=== PATIENT | female | born 1945 | race Caucasian/White ===

== ENCOUNTER 2023-04-30 10:11 | Outpatient (CLI) | payer MEDICARE, SELFPAY ==
--- NOTE | 2023-04-30 11:00 | NEURO_ITS ---
Impression: # Complains of numbness of feet. # Sensory neuropathy. # Normal needle/EMG exam. Nerve Conduction Studies Anti Sensory Summary Table Stim Site NR Peak (ms) P-T Amp (?V) Site1 Site2 Delta-P (ms) Dist (cm) Dean (m/s) Left Sup Fibular Anti Sensory (Ant Lat Mall) NO RESPONSE 14 cm NR 14 cm Ant Lat Mall 16.0 Right Sup Fibular Anti Sensory (Ant Lat Mall) NO RESPONSE 14 cm NR 14 cm Ant Lat Mall 16.0 Left Sural Anti Sensory (Lat Mall) NO RESPONSE Calf NR Calf Lat Mall 16.0 Right Sural Anti Sensory (Lat Mall) NO RESPONSE Calf NR Calf Lat Mall 16.0 Motor Summary Table Stim Site NR Onset (ms) O-P Amp (mV) Site1 Site2 Delta-0 (ms) Dist (cm) Dean (m/s) Left Peroneal Motor (Vastus Med) Ankle 4.3 2.2 Popit Ankle 8.4 39.0 46 Popit 12.7 1.7 Right Peroneal Motor (Vastus Med) Ankle 4.4 1.0 Popit Ankle 9.0 40.0 44 Popit 13.4 0.9 Left Tibial Motor (Abd Shrestha Brev) Ankle 4.1 1.1 Knee Ankle 9.4 42.0 45 Knee 13.5 0.9 Right Tibial Motor (Abd Shrestha Brev) Ankle 4.3 2.2 Knee Ankle 9.8 45.0 46 Knee 14.1 1.9 F Wave Studies NR F-Lat (ms) L-R F-Lat (ms) Left Peroneal (Mrkrs) (EDB) 57.15 1.66 Right Peroneal (Mrkrs) (EDB) 58.81 1.66 Left Tibial (Mrkrs) (Abd Hallucis) 57.22 0.94 Right Tibial (Mrkrs) (Abd Hallucis) 58.15 0.94 EMG Side Muscle Nerve Root Ins Act Fibs Amp Dur Recrt Comment Right AntTibialis Dp Br Fibular L4-5 Nml Nml Nml Nml Nml Right Gastroc Tibial S1-2 Nml Nml Nml Nml Nml Right Fibularis Long Sup Br Fibular L5-S1 Nml Nml Nml Nml Nml Right Flex Dig Long Tibial L5-S2 Nml Nml Nml Nml Nml Right Ext Dig Brev Dp Br Fibular L5, S1 Nml Nml Nml Nml Nml Left AntTibialis Dp Br Fibular L4-5 Nml Nml Nml Nml Nml Left Gastroc Tibial S1-2 Nml Nml Nml Nml Nml Left Fibularis Long Sup Br Fibular L5-S1 Nml Nml Nml Nml Nml Left Flex Dig Long Tibial L5-S2 Nml Nml Nml Nml Nml Left Ext Dig Brev Dp Br Fibular L5, S1 Nml Nml Nml Nml Nml MTDD
== END 2023-04-30 10:12 | disposition home or self-care (01) ==
LOC: ANHNEURO 10:13
PROVIDERS: PCP Internal Medicine; Visit Provider Podiatrist Foot & Ankle Surgery
DX: G62.9 Polyneuropathy, unspecified (principal); E11.40 Type 2 diabetes mellitus with diabetic neuropathy, unspecified
CPT/HCPCS: 95886; 95910

== ENCOUNTER 2023-07-01 01:21 | Day surgery (SDC) | payer MEDICARE, SELFPAY ==
[2023-06-21 12:19] VITALS: BMI 26.6
--- NOTE | 2023-06-28 15:58 | PM.HPGS ---
History of Present Illness History of Present Illness Consent: Risks, benefits, and alternatives have been discussed and questions answered. Patient agrees to proceed with procedure. 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 Was able to be dilated only up to 15 mm. She returns now for further treatment. Review of Systems Review of Systems: All systems reviewed & are unremarkable except as noted in HPI and below PMFSH Past Medical History Medical History Diabetes HTN (hypertension) Hyperlipidemia Osteoarthritis Overweight (BMI 25.0-29.9) Social History Social History Substance use type: does not use Living arrangements: with family Spiritual care concerns: No Meds Home Medications and Allergies Home Medications Medication Instructions Recorded Confirmed Type atorvastatin 40 mg tablet 40 mg PO DAILY 05/01/23 06/21/23 History ezetimibe 10 mg tablet 10 mg PO DAILY 05/01/23 06/21/23 History metformin 500 mg tablet,extended 500 mg PO DAILY 05/01/23 06/21/23 History release 24 hr metoprolol tartrate 100 mg tablet 100 mg PO DAILY 05/01/23 06/21/23 History zolpidem 10 mg tablet 10 mg PO HS 05/01/23 06/21/23 History omeprazole 40 mg capsule,delayed 40 mg PO DAILY #30 caps 05/09/23 06/21/23 Rx release Allergies Allergy/AdvReac Type Severity Reaction Status Date / Time meperidine [From Demerol] Allergy Hallucinati Verified 07/01/23 11:10 ng Sulfa (Sulfonamide Allergy Hives Verified 07/01/23 11:10 Antibiotics) Exam Const: General: alert Orientation/consciousness: patient oriented x3 Resp: Auscultation: clear to auscultation bilaterally Cardio: Rhythm: regular rhythm GI: GI Palp: Yes Soft to palpation and No Tenderness to palpation present (GI) Neuro: General: patient oriented x3 Assessment and Plan Assessment and plan (1) Dysphagia: Code(s): R13.10 - Dysphagia, unspecified Status: Acute Assessment and Plan: EGD with possible biopsy or dilatation or cautery.
[2023-07-01 11:12] VITALS: BP 128/65; PULSE 65; RESP 18; TEMP 36.5; O2SAT 96
[2023-07-01] MEDS: LACTATED RINGERS 1,000 ML 150 ML IV CONT (11:21)
[2023-07-01 11:23] LABS: Glucose Point of Care 106 mg/dl (65-105)
--- NOTE | 2023-07-01 11:48 | WPDANESEPPF ---
Anes - Initial Pre Proc Eval Procedure: Operation Date: 07/01/23 12:30 Proposed Procedures p Esophagogastroduodenoscopy - Arpan Queen MD Date/Time: 07/01/23 11:48 Surgeon: Arpan Queen MD Pre Op Diagnosis: dysphagia Patient Data Age: 78 Gender: F Height: 1.7 m Weight: 79.1 kg Last Vital Signs Temp 97.7 F 07/01/23 11:12 Pulse 65 07/01/23 11:12 Resp 18 07/01/23 11:12 BP 128/65 07/01/23 11:12 Pulse Ox 96 07/01/23 11:12 O2 Del Method Room Air 07/01/23 11:12 Allergies Allergy/AdvReac Type Severity Reaction Status Date / Time meperidine [From Demerol] Allergy Hallucinati Verified 07/01/23 11:10 ng Sulfa (Sulfonamide Allergy Hives Verified 07/01/23 11:10 Antibiotics) Home Medications Medication Instructions Recorded Confirmed Type atorvastatin 40 mg tablet 40 mg PO DAILY 05/01/23 06/21/23 History ezetimibe 10 mg tablet 10 mg PO DAILY 05/01/23 06/21/23 History metformin 500 mg tablet,extended 500 mg PO DAILY 05/01/23 06/21/23 History release 24 hr metoprolol tartrate 100 mg tablet 100 mg PO DAILY 05/01/23 06/21/23 History zolpidem 10 mg tablet 10 mg PO HS 05/01/23 06/21/23 History omeprazole 40 mg capsule,delayed 40 mg PO DAILY #30 caps 05/09/23 06/21/23 Rx release Laboratory Tests 07/01/23 11:16 POC Capillary Glucose 106 H mg/dl (65-105) Patient hx anesthesia problems: none Family hx anesthesia problems: none Results Review: All pre-operative results and documents have been reviewed as part of the pre-operative evaluation. [facility] Past Medical History Medical History Diabetes HTN (hypertension) Hyperlipidemia Osteoarthritis Overweight (BMI 25.0-29.9) Social History Social History Substance use type: does not use Living arrangements: with family Spiritual care concerns: No Anes - Eval Final PreProcedure Day of Procedure 07/01/23 11:48 Patient weight: normal Heart: regular rate and rhythm Lungs: clear to auscultation Airway: Mallampati scale class II Neurological: alert and oriented Last oral intake: >/= 8 hours ASA classification: III Emergent: no Anesthetic plan: proceed Anesthesia type and monitoring: general GIVS and standard monitoring Results Review: All pre-operative results and documents have been reviewed as part of the pre-operative evaluation. Informed Consent: The patient's anesthetic plan and its attendant risks and benefits were discussed with the patient/family/POA. Questions were solicited and answers provided to the satisfaction of the patient/family/POA.
[2023-07-01 12:06] VITALS: BP 123/69; PULSE 64; RESP 22; O2SAT 95
[2023-07-01 12:16] VITALS: BP 127/66; PULSE 64; RESP 16; O2SAT 97
[2023-07-01 12:26] VITALS: BP 128/66; PULSE 61; RESP 15; O2SAT 97
== END 2023-07-01 12:32 | disposition home or self-care (01) ==
PROVIDERS: PCP Internal Medicine; Visit Provider Internal Medicine Gastroenterology
PROC: 0DJ08ZZ Inspection of Upper Intestinal Tract, Via Natural or Artificial Opening Endoscopic (ICD-10-PCS; CPT 43235; principal; 2023-07-01 12:30)
DX: K22.2 Esophageal obstruction (principal); E11.8 Type 2 diabetes mellitus with unspecified complications; E78.5 Hyperlipidemia, unspecified; Z79.84 Long term (current) use of oral hypoglycemic drugs
CPT/HCPCS: 43249; 82948; C1726; J2704; J7120